=== PATIENT | female | born 1940 | race Native Hawaiian/Other Pacific Islander ===

== ENCOUNTER 2017-03-13 08:24 | Outpatient (CLI) | payer OTHER ==
[~2017-03-13] VITALS: Ht 160 cm; Wt 80.3 kg
[2017-03-13 09:03] VITALS: BP 134/82; TEMP 97.7
[2017-03-13 10:40] VITALS: BP 134/69; TEMP 98.5
== END 2017-03-13 19:19 | disposition home or self-care (01) ==
LOC: INF 08:24
DX: M81.8 Other osteoporosis without current pathological fracture (principal)
CPT/HCPCS: 36415; 82310; 82565; 96361; 96365; J3489